=== PATIENT | male | born 1955 | race Caucasian/White ===

== ENCOUNTER → 2016-12-11 | Outpatient (CLI) | payer OTHER ==
[~2016-12-11] MED LIST: ADVIL DPS200 MG PO; ALKA-SELTZER H1 EACH PO; ASA CHILDREN'S81 MG PO; BRILINTA90 MG PO; LIPITOR40 MG PO; METFORMIN HCL1000 MG PO; NICODERM CQ1 EAC1 TP; NITROSTAT0.4 MG SL; THERA1 EACH PO; ZEBETA5 MG PO
--- NOTE | ~2016-12-11 | CST ---
Cardiac Perfusion Imaging Demographics Patient Name ROVERTO Figueroa Gender Male Patient Number [id number] Race Visit Number [id number] Ethnicity Corporate ID Room Number Accession Number [id number] Height 74 inches Date of 1955 Weight 221 pounds Age 60 year(s) BSA 2.27 m Referring Physician Giuseppe Miles BMI 28.37 kg/m Interpreting [facility] Date of study 12/11/2016 Physician Arielle England MD Supervising MD/MLP Arielle England MD NM Technologist Rayo Woodruff, [facility] Ordering Physician Giuseppe Miles Stress Gracie Sims MD mechanical engineering technician Stress ECG Reading Arielle England MD Nurse Heather Holden Physician Teddy Redman The procedure was explained in detail to the patient. Risks, complications and alternative treatments were reviewed. Written consent was obtained. Medications Reviewed with Patient prior to Procedure. Procedure Procedure Type: Nuclear Stress Test:Cardiac Study SF Procedure Start time: 12/11/2016 07:20 Indications: Chest pain. Risk Factors The patient risk factors include:former tobacco use, diabetes mellitus and dyslipidemia. Conclusions Summary Perfusion Images: The overall quality of the study is good. Left ventricular cavity size is normal on stress and rest images. There is no evidence of abnormal lung activity. The right ventricle is not visualized and cannot be assessed. Stress imaging reveals medium to large sized area of severe decreased isotope uptake in the anterior wall of the left ventricle. Rest imaging reveals small sized area of severe decreased isotope uptake in the apical wall. Gated imaging reveals normal wall motion. Impression ECG portion of the stress test is clinically positive for ischemia by diagnostic criteria. Myocardial perfusion imaging is abnormal. Images reveal a medium to large sized area of severe anterior wall ischemia. Gated wall motion is normal with LVEF 49%. This is a high risk stress test. There are no previous studies for comparison. . Stress Protocols Resting ECG Normal sinus rhythm. PACs. Resting HR:70 bpm Resting BP:142/88 mmHg Stress Protocol:Exercise Peak HR:139 bpm HR/BP product:22102 Peak BP:162/98 mmHg Predicted HR: 160 bpm % of predicted HR: 87 Test duration:05:03 min Reason for termination:Fatigue ECG Findings [address] depression in leads II, III, V4, V5 with peak exercise. Arrhythmias A new right bundle branch block. Complications Procedure complication: None. Stress Interpretation The electrocardiographic portion of the stress test was positive for ischemia. Blood pressure response was normal, heart rate response was normal for exertion. The Tamayo Treadmill Score was -3. This corresponds to a intermediate risk stress test. Imaging Results Summed scores - Summed stress score: 17 - Summed rest score: 8 - Summed difference score: 9 Stress ejection Ejection fraction:49 % EDV :197 ml ESV :101 ml Stroke volume :96 ml LV mass :193 gr Imaging Protocols Rest Stress Isotope:Tc99m Myoview IV Isotope: Tc99m Myoview IV Isotope dose:10.5 mCi Isotope dose:30.6 mCi Date:12/11/2016 06:30 Date:12/11/2016 07:20 Technique: SPECT Technique: Gated Supine SPECT Supine Scan Time:30 minutes post injection Scan Time:15-30 minutes post injection Medical History Admission Data Admission date: 12/11/2016 Admission Time: 05:54 Hospital Status: Outpatient. Signatures
== END | disposition home or self-care (01) ==
LOC: CARD 05:54
DX: I20.8 Other forms of angina pectoris (principal); I25.9 Chronic ischemic heart disease, unspecified

== ENCOUNTER 2016-12-19 05:58 | Observation (INO) | payer OTHER ==
[~2016-12-19] VITALS: Ht 185.4 cm; Wt 97.3 kg
--- NOTE | ~2016-12-19 | ECH ---
Transthoracic Echocardiography Report (TTE) Demographics Patient Name DENNY LAYNE Date of Study 12/19/2016 J Patient Number [id number] Visit Number [id number] Date of 1955 Room Number 426 Accession Number [id number] Gender Male Age 60 year(s) Referring Celestino HERNANDEZ Tail Trimmer Jenny Chan [facility] Physician Gary Physician Interpreting Celestino [place] Solicitor Physician Supervising Ordering Physician Celestino Vega MD/P Nurse Stress Manager Ethics Conclusions Contractility Score Summary Normal Left Ventricular contractility was noted. Summary Technically good exam. The estimated left ventricular ejection fraction is 55%. No significant valvular abnormalities. Recommendation The patient will be given the results of this study by the physician who ordered the exam. Procedure Type of Study TTE procedure:Echo Complete SF. Procedure Date Date: 12/19/2016 Start: 12:00 AM Technical Quality: Good visualization Indications:Chest pain and Abnormal Stress Test. Appropriate Use Criteria: 9 Height: 73 inches Weight: 215 pounds BSA: 2.22 m Rhythm: Irregular HR: 57 bpm BP: 120/70 mmHg Allergies - No known allergies. M-Mode/2D Measurements LV Diastolic Dimension: 5.74 cm LV Systolic Dimension: 4.45 cm LV Septum Diastolic: 0.87 cm LV PW Diastolic: 0.89 cm AO Root Dimension: 3.62 cm Cardiac Output: 3.99 l/min LA Dimension: 3.63 cm Cardiac Index: 1.8 l/min*m RV Diastolic Dimension: 3.42 cm LA volume index: 22 ml/m LVOT: 1.99 cm LVOT VTI: 22.52 cm RV Base: 4 cm LV Stroke volume: 70.01 ml RV Mid: 2.2 cm LV Stroke volume index: 31.54 ml/m TAPSE: 3.2 cm TDI-S': 14 cm/s Doppler Measurements AV Peak Velocity: 1.1 m/s MV Peak E-Wave: 0.7 m/s AV Peak Gradient: 4.84 mmHg MV Peak A-Wave: 0.68 m/s AV Mean Gradient: 3.65 mmHg MV E/A Ratio: 1.03 LVOT Peak Velocity: 1.01 m/s MV P1/2t: 66.1 msec AV Area (Continuity):2.68 cm MV Deceleration Time: 244.5 msec TR Velocity:2.36 m/s MV Area (PHT): 3.33 cm TR Gradient:22.26 mmHg PV Peak Velocity: 0.94 m/s Estimated RAP:3 mmHg PV Peak Gradient: 3.5 mmHg Estimated RVSP: 25 mmHg Estimated PASP: 25.26 mmHg E' Septal Velocity: 0.1 m/s A' Septal Velocity: 0.1 m/s E' Lateral Velocity: 0.09 m/s A' Lateral Velocity: 0.08 m/s RA Area: 15.25 cm Findings Left Ventricle Normal left ventricle size and function. Diastolic assessment reveals normal relaxation. Right Ventricle Normal right ventricle structure and function. Left Atrium Normal left atrial size. Right Atrium Normal right atrial size. Mitral Valve Normal mitral valve structure and function. Trivial mitral regurgitation by color Doppler. Aortic Valve Normal aortic valve structure and function. There is trivial aortic regurgitation by color Doppler. Tricuspid Valve Normal tricuspid valve structure and function. Trivial tricuspid regurgitation by color Doppler. Normal pulmonary pressures. Pulmonic Valve Normal pulmonic valve structure and function. Pericardial Effusion No evidence of pericardial effusion. Miscellaneous Visualized portions of the aortic root and ascending aorta appear normal in size. Pleural Effusion No evidence of pleural effusion. Contractility Score LV regional wall motion:(0-Non visualized 1-Normal 2-Hypokinesis 3-Akinesis 4-Dyskinesis 5-Aneurysm) Signature
--- NOTE | ~2016-12-19 | CATH ---
Cardiac Diagnostic + PCI Report Demographics Patient Name ROVERTO BALDWIN Gender Male J Date of 1955 Age 60 year(s) Patient Number [id number] Date of Study 12/19/2016 Visit Number [id number] Room Number Corporate ID Ht 185.42 cm Wt 97.52 kg Accession Number [id number] BSA 2.22 m kg/m Referring Celestino HERNANDEZ Primary Physician Physician Gary Miles MD Performing Celestino HERNANDEZ Secondary Physician Physician Gary Diagnostic Celestino HERNANDEZ Assisting Physician Physician Gary Interventional Celestino HERNANDEZ Physician Diesel Truck Driver Physician Gary Findings and Conclusions Diagnostic Findings and Conclusion 95% occluded promixal to mid LAD. Normal LVEDP. Diagnostic Recommendations PCI of the LAD. Interventional Findings and Conclusion 1. Successful PCI of the proximal LAD with a 3.0 x 32 Synergy Stent, post-dilated to 4.0 proximally and 3.5 mid. 2. Post pci IVUS shows stent to be expanded and apposed. Interventional Recommendations Risk factor modification and dual antiplatelet therapy. Procedure Description The patient was brought to the diagnostic cardiac catheterization laboratory in the fasting, non-sedated state. Informed consent was obtained in the written and verbal form after the risks and benefits were explained. The patient had no further questions and agreed to proceed. The planned puncture-incision site(s) were clipped and prepped with ChloraPrep and draped in the usual sterile manner. Conscious sedation, supplemental oxygen, and pain control medications were delivered by a registered nurse under physician guidance. Surface ECG rhythm, blood pressure measurement, and pulse oximetry were monitored throughout the procedure. Arterial access. The right radial access site was infiltrated with lidocaine. The vessel was entered with the Seldinger technique. A 6F sheath was advanced into the vessel and used for catheter placement. Radial cocktail was administered per protocol. Left heart catheterization. A TIG catheter was advanced across the aortic valve to the left ventricle under fluoroscopic guidance. Resting hemodynamics were obtained. Selective left coronary angiography. A TIG catheter was advanced into the left coronary vessel ostium under Fluoroscopic guidance. Contrast was injected by hand. Images were obtained in multiple projections. Selective right coronary angiography. A catheter was advanced into the right coronary vessel ostium under fluoroscopic guidance. Contrast was injected by hand. Images were obtained in multiple projections. Angioplasty and Stent Placement: An XB3.5 guiding catheter was used to intubate the vessel. A 0.14 Prowater wire was then used to cross the lesion. A 2.5 x 20 Emerge balloon catheter was placed across the lesion and inflated. The balloon catheter was then removed. A 3.0 x 32 Synergy Drug Eluting Stent was placed and inflated. A 3.5 x 20 NC Emerge balloon catheter was placed across the lesion and inflated. The balloon catheter was then removed. Post placement angiograms were performed. IVUS was performed. The IVUS catheter was advanced into position and imaging was performed. Vessel dimensions were measured. A 4.0 x 15 NC Emerge balloon catheter was placed across the lesion and inflated. The balloon catheter was then removed. Post placement angiograms were performed. Arterial artery hemostasis was achieved with a TR band. The patient was transferred to the PCU nursing floor via cart accompanied by a nurse. The patient left the laboratory in stable condition. Diagnostic Cath Status: Elective Procedure Procedure Type Diagnostic procedure:Angiography:, Coronary Angios w/[facility] PCI procedure:Drug Eluting Coronary Stent:, LAD, Additional Imaging:, IVUS:, Initial Vessel Indications: Abnormal nuclear perfusion study, Chest pain, Hyperlipidemia, Hypertension, Tobacco use-current, Early family history of CAD and Diabetes. The procedure was explained in detail to the patient. Risks, complications and alternative treatments were reviewed. Written consent was obtained. Medications Reviewed with Patient prior to Procedure. Complications: No Complication. Angiographic Findings Dominance: Left Cardiac Arteries and Lesion Findings LMCA: Normal (0% Stenosis). LAD: Abnormal. Lesion on Prox LAD: 95% stenosis 32 mm length reduced to 0%. Pre procedure ROSALVA III flow was noted. Post Procedure ROSALVA III flow was present. The guidewire cross was successful.The lesion was diagnosed as a moderate risk lesion.Culprit lesion. Devices used - PROWATER WIRE 0.014" X 180CM. Number of passes: 1. - CATH BAL RX EMERGE 2.5X20. 2 inflation(s) to a max pressure of: 12 karla. - CATH STENT SYNERGY 3.0 X 32. 2 inflation(s) to a max pressure of: 16 karla. - CATH BAL RX NC EMERGE 3.5X20. 2 inflation(s) to a max pressure of: 18 karla. - CATH BAL RX NC EMERGE 4.0X15. 2 inflation(s) to a max pressure of: 14 karla. LCx: Abnormal. Lesion on Prox CX: 20% stenosis . Lesion on Mid CX: 40% stenosis . RCA: Normal (0% Stenosis). Coronary Tree Procedure Data Procedure Date Date: 12/19/2016Start: 09:11 End: 10:15 Entry Locations - Percutaneous access was performed through the Right Radial artery (Primary location). A 6 Fr sheath was inserted. Hemostasis was successfully obtained using a TR band. Procedure Medications Order and Administration + + +---------+--------+ !Time !Medication !Dosage !Route ! + + +---------+--------+ 12/19/2016 !Versed !2 mg ! ! !09:09 ! ! ! ! + + +---------+--------+ 12/19/2016 !Fentanyl !50 mcg !I.V. ! !09:09 ! ! ! ! + + +---------+--------+ 12/19/2016 !Sodium Chloride !10 ml !I.V. ! !09:09 ! ! ! ! + + +---------+--------12/19/2016 !Oxygen !2 l/min !NC ! !09:09 ! ! ! ! + + +---------+--------12/19/2016 !SF Radial Cocktail: 200mcg Nitro, 2.5 mg ! !I.A. ! !09:16 !Verapamil, 5000u Heparin ! ! ! + + +---------+--------+ 12/19/2016 !Heparin (ACC_3) !3000 !I.V. ! !09:26 ! !units ! ! + + +---------+--------12/19/2016 !Sodium Chloride !10 ml !I.V. ! !09:26 ! ! ! ! + + +---------+--------+ 12/19/2016 !Heparin (ACC_3) !3000 !I.V. ! !09:46 ! !units ! ! + + +---------+--------+ !12/19/2016 !Chynailinannmarie (Ticagrelor) (ACC_20) !180 mg !P.O. ! !09:28 ! ! ! ! + + +---------+--------+ Devices Used - A6 Fr6F TIG CATHETERwas used for:BilateralCoronary Angios. - A6 FrGUIDE CATHETER 6FR XB 3.5 100CMwas used for:LeftsideLAD Intervention. Contrast Material - Isovue 365432 ml Fluoroscopy Time: Diagnostic: 11:12 minutes. Total: 11:12 minutes. Fluoroscopy Dose: Diagnostic: 1598 mGy. Total: 1598 mGy. Estimated Blood Loss: 18 ml. Medical History Performed Procedures and Imaging Results - Stress testing with SPECT MPIwas performed on 12/11/2016. Results were: Positive. Risk/Extent of ischemia was: High risk. Allergies - No known allergies. Risk Factors The patient risk factors include:hypertension, family history of premature CAD, orally-treated diabetes mellitus, last creatinine: 1.1 mg/dl, creatinine clearance: 98.51 ml/min, dyslipidemia and Current/Recent(w/in 1 year) tobacco use. Admission Data Admission Date: 12/19/2016 Admission Time: 05:58 Clinical Evaluation Leading to Procedure Diagnosed on 12/13/2016 12:00 . Hemodynamics Condition: Rest O2 Consumption: Estimated: 259.93Heart Rate: 69 bpm Pressures (mmHg) +-----+ + !Site !Pressure ! +-----+ + !LV !106/2 ,5 ! +-----+ + !AO !95/50 (70) ! +-----+ + !LV !107/1 ,6 ! +-----+ + !AO !97/53 (73) ! +-----+ + Valve Gradients and Areas + +---------+---------+---------+ +---------+ + !Valve !Peak !Mean !Area !Index !Flow !Source ! + +---------+---------+---------+ +---------+ + !Aortic !11 !12 ! ! ! ! ! + +---------+---------+---------+ +---------+ + !Aortic !11 !12 ! ! ! ! ! + +---------+---------+---------+ +---------+ + Shunts Oxygen Values O2 Capacity 189.04 O2 Consumption 259.93 Signatures
[2016-12-21] MEDS ORDERED: ASA CHILDREN'S81 MG PO (13:51)
[2016-12-21] MEDS ORDERED: LIPITOR40 MG PO (13:51)
[2016-12-21] MEDS ORDERED: ALKA-SELTZER H1 EACH PO (13:51)
[2016-12-21] MEDS ORDERED: BRILINTA90 MG PO (13:52)
[2016-12-21] MEDS ORDERED: ZEBETA5 MG PO (13:52)
[2016-12-21] MEDS ORDERED: THERA1 EACH PO (13:52)
[2016-12-21] MEDS ORDERED: ADVIL DPS200 MG PO (13:52)
[2016-12-21] MEDS ORDERED: METFORMIN HCL1000 MG PO (13:52)
[2016-12-21] MEDS ORDERED: NICODERM CQ1 EAC1 TP (13:53)
[2016-12-21] MEDS ORDERED: NITROSTAT0.4 MG SL (13:53)
== END 2016-12-20 11:12 | disposition home or self-care (01) ==
LOC: SSS 05:58 → 4PCU 09:47 → SSS 10:18 → 4PCU 10:46
PROVIDERS: ADMIT Internal Medicine Cardiovascular Disease
DX: I25.10 Atherosclerotic heart disease of native coronary artery without angina pectoris (principal); E11.9 Type 2 diabetes mellitus without complications; I10 Essential (primary) hypertension; E78.2 Mixed hyperlipidemia; F17.210 Nicotine dependence, cigarettes, uncomplicated; Z79.82 Long term (current) use of aspirin; Z79.899 Other long term (current) drug therapy